=== PATIENT | female | born 1955 | race Caucasian/White ===

== ENCOUNTER 2023-08-03 14:17 | Outpatient (RCR) | payer MEDICARE, OTHER, SELFPAY | END 2023-08-03 23:59 | disposition home or self-care (01) | LOC: RPT 14:17 | PROVIDERS: ATTENDING PHYSICIAN Urology; PRIMARYCARE PHYSICIAN Internal Medicine | DX: M62.89 Other specified disorders of muscle (principal); N39.3 Stress incontinence (female) (male); N94.819 Vulvodynia, unspecified; R10.2 Pelvic and perineal pain; M62.81 Muscle weakness (generalized) | CPT/HCPCS: 97140; 97530 ==

== ENCOUNTER 2023-08-24 12:58 | Outpatient (RCR) | payer MEDICARE, OTHER, SELFPAY | END 2023-08-24 23:59 | disposition home or self-care (01) | LOC: RPT 12:58 | PROVIDERS: ATTENDING PHYSICIAN Urology; PRIMARYCARE PHYSICIAN Internal Medicine | DX: M62.89 Other specified disorders of muscle (principal); N39.3 Stress incontinence (female) (male); N94.819 Vulvodynia, unspecified; Z73.6 Limitation of activities due to disability; R10.2 Pelvic and perineal pain; M62.81 Muscle weakness (generalized); Z86.16 Personal history of COVID-19 | CPT/HCPCS: 97140; 97530 ==

== ENCOUNTER 2023-09-28 13:55 | Outpatient (RCR) | payer MEDICARE, OTHER, SELFPAY | END 2023-09-28 23:59 | disposition home or self-care (01) | LOC: RPT 13:55 | PROVIDERS: ATTENDING PHYSICIAN Urology; PRIMARYCARE PHYSICIAN Internal Medicine | DX: M62.89 Other specified disorders of muscle (principal); N39.3 Stress incontinence (female) (male); N94.819 Vulvodynia, unspecified; Z73.6 Limitation of activities due to disability; R10.2 Pelvic and perineal pain; M62.81 Muscle weakness (generalized) | CPT/HCPCS: 97140; 97530 ==

== ENCOUNTER 2023-11-01 15:11 | Outpatient (RCR) | payer MEDICARE, OTHER, SELFPAY | END 2023-11-01 23:59 | disposition home or self-care (01) | LOC: RPT 15:11 | PROVIDERS: ATTENDING PHYSICIAN Urology; PRIMARYCARE PHYSICIAN Internal Medicine | DX: M62.89 Other specified disorders of muscle (principal); N39.3 Stress incontinence (female) (male); N94.819 Vulvodynia, unspecified; Z73.6 Limitation of activities due to disability; R10.2 Pelvic and perineal pain; M62.81 Muscle weakness (generalized) | CPT/HCPCS: 97110; 97112; 97140; 97530 ==

== ENCOUNTER 2024-03-06 11:15 | Outpatient (RCR) | payer MEDICARE, OTHER, SELFPAY | END 2024-03-06 23:59 | disposition home or self-care (01) | LOC: RPT 11:15 | PROVIDERS: ATTENDING PHYSICIAN Urology; FAMILY PHYSICIAN Internal Medicine | DX: M62.89 Other specified disorders of muscle (principal); N39.3 Stress incontinence (female) (male); Z73.6 Limitation of activities due to disability; R10.2 Pelvic and perineal pain; R27.8 Other lack of coordination; M62.81 Muscle weakness (generalized) | CPT/HCPCS: 97140; 97162; 97530 ==

== ENCOUNTER 2024-04-03 10:06 | Outpatient (RCR) | payer MEDICARE, OTHER, SELFPAY | END 2024-04-03 23:59 | disposition home or self-care (01) | LOC: RPT 10:06 | PROVIDERS: ATTENDING PHYSICIAN Urology; FAMILY PHYSICIAN Internal Medicine | DX: M62.89 Other specified disorders of muscle (principal); N39.3 Stress incontinence (female) (male); Z73.6 Limitation of activities due to disability; R10.9 Unspecified abdominal pain; R27.8 Other lack of coordination; M62.81 Muscle weakness (generalized) | CPT/HCPCS: 97110; 97140; 97530 ==

== ENCOUNTER → 2024-04-24 12:32 | Outpatient (REF) | payer MEDICARE, OTHER, SELFPAY | LOC: WDC 12:32 | PROVIDERS: ATTENDING PHYSICIAN Physician Assistant | DX: Z12.31 Encounter for screening mammogram for malignant neoplasm of breast (principal) | CPT/HCPCS: 77063; 77067 ==

== ENCOUNTER 2024-05-08 12:03 | Outpatient (RCR) | payer MEDICARE, OTHER, SELFPAY | END 2024-05-08 23:59 | disposition home or self-care (01) | LOC: RPT 12:03 | PROVIDERS: ATTENDING PHYSICIAN Urology; FAMILY PHYSICIAN Internal Medicine | DX: M62.89 Other specified disorders of muscle (principal); N39.3 Stress incontinence (female) (male); Z73.6 Limitation of activities due to disability; R10.2 Pelvic and perineal pain; R27.8 Other lack of coordination; M62.81 Muscle weakness (generalized) | CPT/HCPCS: 97140; 97530 ==

== ENCOUNTER 2024-06-05 12:05 | Outpatient (RCR) | payer MEDICARE, OTHER, SELFPAY | END 2024-06-05 23:59 | disposition home or self-care (01) | LOC: RPT 12:05 | PROVIDERS: ATTENDING PHYSICIAN Urology | DX: M62.89 Other specified disorders of muscle (principal); N39.3 Stress incontinence (female) (male); Z73.6 Limitation of activities due to disability; R10.2 Pelvic and perineal pain; R27.8 Other lack of coordination; M62.81 Muscle weakness (generalized); Z90.710 Acquired absence of both cervix and uterus; Z90.79 Acquired absence of other genital organ(s); Z90.722 Acquired absence of ovaries, bilateral | CPT/HCPCS: 97140; 97530 ==

== ENCOUNTER 2024-07-03 11:00 | Outpatient (RCR) | payer MEDICARE, OTHER, SELFPAY | END 2024-07-03 23:59 | disposition home or self-care (01) | LOC: RPT 11:00 | PROVIDERS: ATTENDING PHYSICIAN Urology | DX: M62.89 Other specified disorders of muscle (principal); N39.3 Stress incontinence (female) (male); Z73.6 Limitation of activities due to disability; R10.2 Pelvic and perineal pain; R27.8 Other lack of coordination; M62.81 Muscle weakness (generalized) | CPT/HCPCS: 97140; 97530 ==

== ENCOUNTER 2024-08-07 11:08 | Outpatient (RCR) | payer MEDICARE, OTHER, SELFPAY | END 2024-08-07 23:59 | disposition home or self-care (01) | LOC: RPT 11:08 | PROVIDERS: ATTENDING PHYSICIAN Urology | DX: M62.89 Other specified disorders of muscle (principal); N39.3 Stress incontinence (female) (male); Z73.6 Limitation of activities due to disability; R10.2 Pelvic and perineal pain; R27.8 Other lack of coordination; M62.81 Muscle weakness (generalized) | CPT/HCPCS: 97140; 97530 ==

== ENCOUNTER 2024-09-06 09:50 | Outpatient (RCR) | payer MEDICARE, OTHER, SELFPAY | END 2024-09-06 23:59 | disposition home or self-care (01) | LOC: RPT 09:50 | PROVIDERS: ATTENDING PHYSICIAN Urology | DX: M62.89 Other specified disorders of muscle (principal); N39.3 Stress incontinence (female) (male); Z73.6 Limitation of activities due to disability; R10.2 Pelvic and perineal pain; R27.8 Other lack of coordination; M62.81 Muscle weakness (generalized) | CPT/HCPCS: 97140; 97530 ==

== ENCOUNTER 2024-09-13 10:57 | Outpatient (RCR) | payer MEDICARE, OTHER, SELFPAY | END 2024-09-13 23:59 | disposition home or self-care (01) | LOC: RPT 10:57 | PROVIDERS: ATTENDING PHYSICIAN Urology | DX: M62.89 Other specified disorders of muscle (principal); N39.3 Stress incontinence (female) (male); Z73.6 Limitation of activities due to disability; R10.2 Pelvic and perineal pain; R27.8 Other lack of coordination; M62.81 Muscle weakness (generalized) | CPT/HCPCS: 97140; 97530 ==

== ENCOUNTER 2024-11-01 12:04 | Outpatient (RCR) | payer MEDICARE, OTHER, SELFPAY | END 2024-11-01 23:59 | disposition home or self-care (01) | LOC: RPT 12:04 | PROVIDERS: ATTENDING PHYSICIAN Urology | DX: M62.89 Other specified disorders of muscle (principal); N39.3 Stress incontinence (female) (male); Z73.6 Limitation of activities due to disability; R27.8 Other lack of coordination; R10.2 Pelvic and perineal pain; M62.81 Muscle weakness (generalized) | CPT/HCPCS: 97112; 97140; 97530 ==

== ENCOUNTER 2024-12-05 14:03 | Outpatient (RCR) | payer MEDICARE, OTHER, SELFPAY | END 2024-12-05 23:59 | disposition home or self-care (01) | LOC: RPT 14:03 | PROVIDERS: ATTENDING PHYSICIAN Urology | DX: M62.89 Other specified disorders of muscle (principal); N39.3 Stress incontinence (female) (male); Z73.6 Limitation of activities due to disability; R10.2 Pelvic and perineal pain; R27.8 Other lack of coordination; M62.81 Muscle weakness (generalized) | CPT/HCPCS: 97110; 97112; 97140; 97530 ==

== ENCOUNTER 2025-01-02 12:59 | Outpatient (RCR) | payer MEDICARE, OTHER, SELFPAY | END 2025-01-02 23:59 | disposition home or self-care (01) | LOC: RPT 12:59 | PROVIDERS: ATTENDING PHYSICIAN Urology | DX: M62.89 Other specified disorders of muscle (principal); N39.3 Stress incontinence (female) (male); Z73.6 Limitation of activities due to disability; R10.2 Pelvic and perineal pain; R27.8 Other lack of coordination; M62.81 Muscle weakness (generalized) | CPT/HCPCS: 97110; 97140; 97530 ==

== ENCOUNTER 2025-01-23 12:21 | Outpatient (RCR) | payer MEDICARE, OTHER, SELFPAY | END 2025-01-23 23:59 | disposition home or self-care (01) | LOC: RPT 12:21 | PROVIDERS: ATTENDING PHYSICIAN Urology | DX: M62.89 Other specified disorders of muscle (principal); N39.3 Stress incontinence (female) (male); Z73.6 Limitation of activities due to disability; R10.2 Pelvic and perineal pain; R27.8 Other lack of coordination; M62.81 Muscle weakness (generalized) | CPT/HCPCS: 97140; 97530 ==

== ENCOUNTER 2025-03-06 11:57 | Outpatient (RCR) | payer MEDICARE, OTHER, SELFPAY | END 2025-03-06 23:59 | disposition home or self-care (01) | LOC: RPT 11:57 | PROVIDERS: ATTENDING PHYSICIAN Urology | DX: M62.89 Other specified disorders of muscle (principal); N39.3 Stress incontinence (female) (male); Z73.6 Limitation of activities due to disability; R10.2 Pelvic and perineal pain; R27.8 Other lack of coordination; M62.81 Muscle weakness (generalized) | CPT/HCPCS: 97110; 97140; 97530 ==

== ENCOUNTER 2025-03-20 14:36 | Outpatient (RCR) | payer MEDICARE, OTHER, SELFPAY | END 2025-03-20 23:59 | disposition home or self-care (01) | LOC: RPT 14:36 | PROVIDERS: ATTENDING PHYSICIAN Urology | DX: M62.89 Other specified disorders of muscle (principal); N39.3 Stress incontinence (female) (male); Z73.6 Limitation of activities due to disability; R10.2 Pelvic and perineal pain; R27.8 Other lack of coordination; M62.81 Muscle weakness (generalized); K59.00 Constipation, unspecified | CPT/HCPCS: 97140; 97530 ==

== ENCOUNTER → 2025-04-30 11:25 | Outpatient (REF) | payer MEDICARE, OTHER, SELFPAY | LOC: WDC 11:25 | PROVIDERS: ATTENDING PHYSICIAN Family Medicine | DX: Z12.31 Encounter for screening mammogram for malignant neoplasm of breast (principal); Z12.39 Encounter for other screening for malignant neoplasm of breast | CPT/HCPCS: 77063; 77067 ==

== ENCOUNTER 2025-05-08 15:59 | Outpatient (RCR) | payer MEDICARE, OTHER, SELFPAY | END 2025-05-08 23:59 | disposition home or self-care (01) | LOC: RPT 15:59 | PROVIDERS: ATTENDING PHYSICIAN Urology | DX: M62.89 Other specified disorders of muscle (principal); N39.3 Stress incontinence (female) (male); Z73.6 Limitation of activities due to disability; R10.2 Pelvic and perineal pain; R27.8 Other lack of coordination; M62.81 Muscle weakness (generalized); K59.00 Constipation, unspecified | CPT/HCPCS: 97110; 97140; 97530 ==

== ENCOUNTER 2025-06-07 15:00 | Outpatient (RCR) | payer MEDICARE, OTHER, SELFPAY | END 2025-06-07 23:59 | disposition home or self-care (01) | LOC: RPT 15:00 | PROVIDERS: ATTENDING PHYSICIAN Urology | DX: M62.89 Other specified disorders of muscle (principal); N39.3 Stress incontinence (female) (male); Z73.6 Limitation of activities due to disability; R10.2 Pelvic and perineal pain; R27.8 Other lack of coordination; M62.81 Muscle weakness (generalized); K59.00 Constipation, unspecified; R10.20 Pelvic and perineal pain unspecified side | CPT/HCPCS: 97140; 97530 ==

== ENCOUNTER 2025-07-03 10:39 | Outpatient (RCR) | payer MEDICARE, OTHER, SELFPAY | END 2025-07-03 23:59 | disposition home or self-care (01) | LOC: RPT 10:39 | PROVIDERS: ATTENDING PHYSICIAN Urology | DX: M62.89 Other specified disorders of muscle (principal); N39.3 Stress incontinence (female) (male); Z73.6 Limitation of activities due to disability; R10.2 Pelvic and perineal pain; R27.8 Other lack of coordination; M62.81 Muscle weakness (generalized); R10.20 Pelvic and perineal pain unspecified side; K59.00 Constipation, unspecified | CPT/HCPCS: 97112; 97140; 97530 ==